=== PATIENT | male | born 1945 | race Caucasian/White ===

== ENCOUNTER 2024-04-21 17:05 | Emergency (ER) | payer OTHER, SELFPAY ==
[2024-04-21] VITALS (8 sets, daily range): BP systolic 96–126; BP diastolic 58–70; BMI 26.8
--- NOTE | 2024-04-21 17:15 | ED.GENMED ---
History of Present Illness
General
Chief Complaint: Weakness
Source: patient
Exam Limitations: none
Time Seen by Provider: 04/21/24 17:13
Nursing documentation reviewed up to this point in time: agreed with
History of Present Illness
History of Present Illness:
78-year-old male presents emergency department due to weakness. He has been having trouble ambulating throughout the past week, but now cannot walk. EMS was initially concerned due to right arm weakness and bilateral leg weakness. The right arm
weakness did resolve. His oxygen saturation was 90-92%, so EMS placed him on a nonrebreather.
Past History
Past History
ED Past Medical History: Arrthythmia, CAD, Cancer (Bladder) and Other (Cardiac arrest/CA)
ED Past Surgical History: Other (Cystectomy, AICD, port placement)
Social History
Tobacco: Former smoker
Alcohol: None
Drug: None
Personal:
Living: with family
Review of Systems
Review of Systems
Allergies reviewed?: Yes
All Other Systems: Not applicable
Constitutional: Reports fatigue
EENT: Reports no symptoms
Respiratory: Reports no symptoms
Cardiac: Reports no symptoms
ABD/GI: Reports no symptoms
: Reports no symptoms
Musculoskeletal: Reports no symptoms
Skin: Reports no symptoms
Neurological: Reports weakness
Endocrine: Reports no symptoms
Hematologic/Lymphatic: Reports no symptoms
Psychiatric: Reports no symptoms
Phy Exam
Physical Exam
Physical Exam:
Physical Exam
General: Chronic ill appearance, afebrile
Neck: supple. no meningeal signs. normal posterior pharynx
Heart: s1/s2 regular rate and rhythm, no murmur. equal radial
pulses.
HEENT: Pupils equal round reactive to light, EOMI
Lungs: no acute respiratory distress. clear bilaterally
Abdomen: normal bowel sounds. not tender. no CVAT, feeding tube, colostomy
Neuro: alert and oriented. no focal neurological deficits cranial nerves II through XII intact
Skin: no rash
Psychiatric: well kept. interactive and cooperative
Extremities: no edema. no calf tenderness. negative homans. good distal pulses
Course
Orders/Labs/Results
Orders:
Orders
04/21/24 17:18
Electrocardiogram (*1) Urgent
Reason for Study: Fatigue / Weakness
EKG- Treatment ONCE
IV Insert/Care/Rem.- Treatment PRN
04/21/24 17:19
CR Chest Portable - 1 View Urgent
Comment:
Reason For Exam: mild hypoxia, weakness
Reason Study Needs to be Portable: Unable to Transport
04/21/24 17:20
CT Head W/o Iv Contrast Urgent
Comment:
Reason For Exam: weakness
04/21/24 17:27
Complete Blood Count/With Diff Urgent
Comprehensive Metabolic Panel Urgent
NT-proBNP Urgent
Troponin I Urgent
04/21/24 18:58
Prothrombin Complex(Pcc),Human [Kcentra] 2,012 unit Empty Viaflex Container 100 ml [Viaflex Empty Container] 80 ml IV NOW
Does patient have a dx of serious acute active bleeding?: Yes
Does patient have prior history of HIT?: No
Urgent surgery/invasive procedure planned in next 6 hours?: No
04/21/24 19:14
Levetiracetam Injectable [Keppra] 500 mg IV NOW STA
Abnormal Lab Results
04/21/24
17:27
MCV 96.3 H fL
(80.0-94.0)
MCH 31.9 H pg
(27.0-31.0)
MPV 10.7 H fL
(7.4-10.4)
Absolute Neuts (auto) 7.6 H 10^3/uL
(1.4-6.5)
Absolute Lymphs (auto) 0.6 L 10^3/uL
(1.2-3.4)
Absolute Monos (auto) 0.8 H 10^3/uL
(0.1-0.6)
Neutrophils % 83.0 H %
(42.2-75.2)
Lymphocytes % 6.7 L %
(20.5-51.1)
BUN 55 H mg/dl
(9-20)
Glucose 116 H mg/dl
(70-99)
Total Protein 6.2 L g/dl
(6.3-8.2)
04/21/24 17:27
04/21/24 17:27
Vital Signs
Initial and Last Documented VS:
Initial Vital Signs
Temp Pulse Resp BP Pulse Ox
97.7 F 91 21 122/58 96
04/21/24 17:06 04/21/24 17:06 04/21/24 17:06 04/21/24 17:06 04/21/24 17:06
Last Documented Vital Signs
Temp Pulse Resp BP Pulse Ox
97.7 F 88 26 114/61 97
04/21/24 17:06 04/21/24 19:52 04/21/24 19:52 04/21/24 19:52 04/21/24 19:52
MDM/Problems Addressed
Differential Diagnosis Includes:
CVA, intracranial hemorrhage
MDM/Problems Addressed:
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 Vital signs stable, blood pressure stable. Kcentra given to daniel Henry. Stable neurologic exam. Transferred to [facility] under Dr. Dougherty.
Chronic conditions affecting care: CAD and Arrhythmia
Acute Exacerbation and/or Progression of Chronic Illness: Arrhythmia
*Radiology
Radiology exam reviewed: radiology read reviewed (CT head shows intracranial hemorrhage)
*Pulse Oximetry
Patient hypoxic: no
*EKG
Interpreted by ED Provider?: Yes
EKG Intrepretation Date: 04/21/24
EKG Intrepretation Time: 18:38
Interpretation: abnormal
Comparison EKG: changes noted
Heart Rate: 91
Rate: normal
Rhythm: av sequential
[place]: normal axis
Interval: normal interval
QRS Pattern: left bundle branch block
Ischemia: no ischemia
*Bacteriology Professor Interpretation
Rate: normal
Interpretation: abnormal
Heart Rate: 90
Rhythm: av sequential
*Critical Care Note
Total Time (30-74mins, 75-104mins- exclusive of procedures): 45
comment:
Critical care statement: A total of 45 minutes of critical care time was provided for this patient. This includes management of unstable vital signs, evaluation of the patient at bedside, reviewing the patient's pertinent medical records, discussion
with consultants, review of old EKGs and review of pertinent medical records. This time with separate from time utilized to perform the aforementioned documented procedures
Data Reviewed
Review of Other/Old Records Reveals: Radiology Studies
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
Patient Management
Social determinants of health affecting care: Living situation and Strong social support
Discussion with other providers: [employer] [facility] (Neurosurgery, Dr. Umana)
Escalation/DeEscalation of care consider admission/obs:
Transfer to [facility] indicated emergently
ED Attending Note
-
Portions of this chart may have been created with voice recognition software.� Occasional wrong word or��sound alike� substitutions may have occurred due to the inherent limitations of voice recognition software.
Discharge Plan
Departure
Patient Disposition: Acute Care Hospital
Date of Disposition: 04/21/24
Time of Disposition: 18:36
Patient with high blood pressure during this ER visit?: Yes
Condition: Fair
Discharge Problem:
Intracranial hemorrhage
Prescriptions:
No Action
atorvastatin 20 MG tablet
20 mg PO HS
sotalol 120 MG tablet
60 mg PO BID
Eliquis 5 MG tablet
5 mg PO BID Qty: 30 0RF
carvedilol 3.125 mg Tablet
3.125 mg PO BID
erythromycin 5 mg/gram (0.5 %) Ointment
1 applic LEFT EYE HS
gabapentin 100 mg Capsule
300 mg PO HS
dapagliflozin propanediol [Farxiga] 10 mg Tablet
10 mg PO DAILY
cyclosporine 0.05 % Drops
1 drp BOTH EYES BID
Referrals:
UNKNOWN,NO INTERVIEW [Family Provider] -
Hospital Transfer
Other hospital: [facility]
I certify that the patient requires transfer: Yes
Discussed case with accepting physician: Ladonna
Reason for transfer: higher level of care and specialties available
Interventions
Interventions:
*Risk Screen - Suicide Last Done: 04/21/24 17:20
*General Assessment Last Done: 04/21/24 17:18
*Neglect/Abuse Screening Last Done: 04/21/24 17:20
*ED COVID-19 Vaccine History Last Done: 04/21/24 17:18
ED- Cardiac Assessment Last Done: 04/21/24 17:20
ED- Neurological Assessment Last Done: 04/21/24 17:20
ED- Pulmonary Assessment Last Done: 04/21/24 17:20
Discharge Date and Time
Print Language: FINNISH
[2024-04-21 17:32] LABS: % Basophils 0.3 % (0-2); % Eosinophils 0.9 % (0-6); % Immature Granulocytes 0.4 % (0-0.5); % Lymphocytes 6.7 % (20.5-51.1); % Monocytes 8.7 % (1.7-9.3); Absolute Eosinophils 0.1 10^3/uL (0-0.7); Absolute Lymphocytes 0.6 10^3/uL (1.2-3.4); Absolute Monocytes 0.8 10^3/uL (0.1-0.6); Absolute Neutrophils 7.6 10^3/uL (1.4-6.5); Hematocrit 46.2 % (39.0-52.0); Hemoglobin 15.3 g/dL (13.0-18.0); Mean Corp Hgb Conc. 33.1 g/dL (33.0-37.0); Mean Corpuscular Hgb 31.9 pg (27.0-31.0); Mean Corpuscular Volume 96.3 fL (80.0-94.0); Mean Platelet Volume 10.7 fL (7.4-10.4); Nucleated Red Blood Cells % 0 % (-); Platelet Count 151 10^3/uL (130-400); Red Cell Dist. Width 13.7 % (11.5-14.5); White Blood Cell Count 9.1 10^3/uL (4.8-10.8)
[2024-04-21 17:57] LABS: NT-proBNP 3480 pg/ml; Troponin I 0.014 ng/ml
[2024-04-21 17:59] LABS: ALT (SGPT) 20 U/L (0-50); AST (SGOT) 26 U/L (17-59); Albumin 3.6 g/dl (3.5-5.0); Alkaline Phosphatase 105 U/L (38-126); Blood Urea Nitrogen 55 mg/dl (9-20); Calcium 9.4 mg/dl (8.4-10.2); Carbon Dioxide 26 mmol/L (22-30); Chloride 103 mmol/L (98-107); Estimated Creatinine Clearance 61 ml/min; Glucose 116 mg/dl (70-99); Potassium 4.6 mmol/L (3.5-5.1); Sodium 137 mmol/L (135-145); Total Bilirubin 0.9 mg/dl (0.2-1.3); Total Protein 6.2 g/dl (6.3-8.2); eGFR > 60.00
[2024-04-21] MEDS: KCENTRA 80 UNIT IV (19:18)
[2024-04-21] MEDS: KEPPRA 500 MG IV (19:27)
== END 2024-04-21 21:00 | disposition short-term general hospital (02) ==
LOC: EMR 17:05
PROVIDERS: EMERGENCY PHYSICIAN Emergency Medicine
DX: I62.9 Nontraumatic intracranial hemorrhage, unspecified (principal); Q28.2 Arteriovenous malformation of cerebral vessels; I25.10 Atherosclerotic heart disease of native coronary artery without angina pectoris; Z85.51 Personal history of malignant neoplasm of bladder; Z86.74 Personal history of sudden cardiac arrest; Z87.891 Personal history of nicotine dependence; Z95.810 Presence of automatic (implantable) cardiac defibrillator; Z79.01 Long term (current) use of anticoagulants
CPT/HCPCS: 96374; 96375; 99291; 70450; 71045; 80053; 83880; 84484; 85025; 93005; J7168